=== PATIENT | female | born 1995 | race Caucasian/White ===

== ENCOUNTER → 2018-08-01 09:45 | Observation (INO) ==
[2018-07-31 17:32] LABS: Basophils % 0.4 %; Eosinophils # 0.1 K/mcL (0.0-0.6); Eosinophils % 0.7 %; Hematocrit 35.8 % (35.3-44.9); Immature Granulocytes % 0.4 % (0-4); Lymphocytes # 1.8 K/mcL (0.6-4.6); Lymphocytes % 21.8 %; Mean Corpuscular HGB Conc 33.5 g/dL (31.6-35.5); Mean Corpuscular Hemoglobin 27.8 pg (28.0-33.3); Mean Corpuscular Volume 82.9 fL (83.0-100.0); Mean Platelet Volume 10.4 fL (9.4-12.4); Monocytes # 0.4 K/mcL (0.0-1.3); Monocytes % 5.4 %; Neutrophils # 5.8 K/mcL (1.6-8.9); Platelet Count 327 K/mcL (140-400); Red Blood Count 4.32 M/mcL (3.82-4.97); Red Cell Distribution Width 13.4 % (11.5-14.5); Segmented Neutrophils % 71.3 %
--- NOTE | 2018-07-31 17:44 | OB/GYN History & Physical ---
Date of Encounter: 07/31/18 Time of Encounter: 17:36 Assessment and Plan (1) 38 weeks gestation of Current visit: Yes Status: Acute PIH evaluation; uric acid 6 NST reactive Tylenol for headache Observe overnight for symptom improvement/worsening POC per consult with Dr Wilson (2) GBS (group B Streptococcus carrier), +RV culture, currently Current visit: Yes Status: Acute (3) Headache Current visit: Yes Status: Acute Qualifiers: Headache type: unspecified Headache chronicity pattern: acute headache Intractability: not intractable Qualified Code(s): R51 - Headache History of Present Illness Chief complaint: Severe headache HPI: Ms. Stack is a 22 year old at 38 weeks and 5 days presents to triage today with c/o a severe headache that caused her to be dizzy, have right facial weakness, a heavy tongue, and right neck/arm/hand numbness x 30 minutes. Her states she was speaking backwards at the same time and having difficulty getting what she wanted to say out. She currently c/o a headache and dizziness when not laying still. She has been normotensive for the majority of her with a history of chronic HTN on medication prior to . Her blood pressure in the office on 07/26/18 was 140/90 and she was sent to L&D for a pre-eclampsia evaluation at which time her labs returned normal and her blood pressure stabilized. She was discharged. She is scheduled for an IOL on 08/03/18. Last ultrasound: 07/30/18 Vtx, grade 3 anterior placenta, CLIFTON 7.7 with fluid filled stomach and bladder, EFW 3985g 97% BPP 8/8 Labs: GBS positive HIV NR Hep B NR RPR NR Varicella Immune Rubella Immune Blood type A+ Past Med Surg Social Fam HX - Past Medical History Medical history: no medical history Psychiatric history: anxiety - Past Surgical History Surgical History: other Additional surgical history: T&A at 17 years of age, [place] teeth removal at 16 years of age - Social History Smoking Status: Never smoker Smokeless Tobacco Status: No Alcohol use: none Drug use: none - Family History Mother Adopted: No Family Member Ethnicity: Non- Living Status: Still Living Hx Family Cardiac Disorders: Yes (htn) Hx Family Respiratory Disorders: Yes (copd) Hx Family Cancer: Yes (breast) Hx Family GI Disorders: No Hx Family Endocrine Disorder: No Hx Family Neuromuscular Disorders: No Hx Family Neurologic Disorders: No Hx Family HEENT Disorders: No Hx Family Autoimmune Disorders: No Obstetrical History - Pregnancies : 4 Para: 2 Term: 1 : 1 Ab's: 2 Livin Medications and Allergies Vitamin Tablet 1 tab PO DAILY 06/18/18 [History] Allergy/AdvReac Type Severity Reaction Status Date / Time acetaminophen [From Vicodin] AdvReac Itching Verified 07/31/18 16:54 codeine AdvReac Itching Verified 07/31/18 16:54 hydrocodone [From Vicodin] AdvReac Itching Verified 07/31/18 16:54 ketorolac [From Toradol] AdvReac Itching Verified 07/31/18 16:54 Review of System OB All systems PM: reviewed and no additional remarkable complaints except as stated Exam - Constitutional Constitutional: well developed, well nourished, no acute distress, obese - HEENT HEENT: PERRL, Normocephaly, Mucus Membranes Moist - Neck Neck exam: full ROM - Lungs Respiratory exam: CTAB - Cardiovascular Cardiovascular exam: RRR, +S1, +S2 - Abdomen Abdomen: Present: bowel sounds normal, gravid, non tender - Extremities Extremities exam: normal capillary refill, normal inspection, radial pulses palpable and symmetrical Deep Tendon Reflex Grade: 2+ Normal - Vagina Vagina: Present: normal moisture - Cervix Dilation: 5 Effacement: 70 Station: -1 - Uterus Uterus exam: Present: normal size, normal contour - Anus/Rectum Anus/Rectum: Present: normal perianal skin - Comments Comments: Brisk patellar reflexes (2+) 2 beats clonus Results Result Diagrams: 07/31/18 17:05 07/31/18 17:05 Abnormal lab results MCV 82.9 fL (83.0-100.0) L 07/31/18 17:05 MCH 27.8 pg (28.0-33.3) L 07/31/18 17:05 All other labs normal. - VTE Reasons for not Prescribing Prophylaxis: Treatment not Indicated - Low risk for VTE
[2018-07-31 17:46] LABS: Amphetamine Screen,Urine Negative ng/mL (Cutoff=1000); Barbiturate Screen,Urine Negative ng/mL (Cutoff=200); Benzodiazepines Screen,Urine Negative ng/mL (Cutoff=200); Cannabinoid Screen,Urine Negative ng/mL (Cutoff = 50); Cocaine Screen,Urine Negative ng/mL (Cutoff= 300); Creatinine,Urine 61 mg/dL; Opiate Screen,Urine Negative ng/mL (Cutoff=300); Phencyclidine Screen,Urine Negative ng/mL (Cutoff=25); Protein/Creatinine Ratio,Urine 0.21 mg/mg (0.00-0.20)
[2018-07-31 17:48] LABS: Alanine Aminotransferase 5 Units/L (7-52); Aspartate Amino Transferase 11 Units/L (13-39); BUN/Creatinine Ratio 12 (6-26); Blood Urea Nitrogen 7 mg/dL (6-20); Lactate Dehydrogenase 152 Units/L (140-271); eGFR For Non-African Americans > 60 (> 60)
--- NOTE | 2018-07-31 18:10 | Event Note ---
Date of Encounter: 07/31/18 Time of Encounter: 18:03 Asked by CNM to review case and see pt for MANZANO w/ unilateral neuro symptoms, since resolved but pt still has MANZANO that persists, no medication treatment yet. PIH panel normal, but trending up. BPs normal range. Pt currently [id number]. A+O x3. DTRS 3+, no clonus. 1+ PTE and ankle edema. Pt with cervical change, now 5 cm. CAT1 tracing. Agree with overnight observation and evaluation for active labor and need for intervention secondary to preE
--- NOTE | 2018-08-01 06:53 | OB/GYN Progress Note ---
Date of Encounter: 08/01/18 Time of Encounter: 06:49 - Assessment and Plan (1) 38 weeks gestation of Current Visit: Yes Status: Acute Discharge home with labor and PIH precautions Follow up on 08/03/18 for IOL and PRN PIH evaluation; uric acid 6 NST reactive Tylenol for headache Observe overnight for symptom improvement/worsening POC per consult with Dr Wilson (2) GBS (group B Streptococcus carrier), +RV culture, currently Current Visit: Yes Status: Acute (3) Headache Current Visit: Yes Status: Acute Qualifiers: Headache type: unspecified Headache chronicity pattern: acute headache Intractability: not intractable Qualified Code(s): R51 - Headache Subjective - Subjective Principal diagnosis: Headache and neuro symptoms Interval history: This morning Ms Stack states her headache has resolved along with her other symptoms. She states positive movement. She has had irregular, infrequent contractions overnight. Antepartum ROS: movement normal, no new complaints, no loss of fluid, no vaginal bleeding, no contractions Objective - Vital Signs Vital Signs: Intake and Output 07/31/18 07/31/18 08/01/18 15:59 23:59 07:59 Other: Weight 125.645 kg - Exam FHR: auscultation normal, category 1 FHR comments: [place] - irregular infrequent contractions FHTs baseline 160; Cat 1 tracing Abdomen: Present: normal appearance, soft, gravid. Absent: tenderness Uterus: Present: normal. Absent: firm, bogginess, tenderness - Labs Labs: Abnormal lab results MCV 82.9 fL (83.0-100.0) L 07/31/18 17:05 MCH 27.8 pg (28.0-33.3) L 07/31/18 17:05 Creatinine 0.57 mg/dL (0.60-1.20) L 07/31/18 17:05 AST 11 Units/L (13-39) L 07/31/18 17:05 ALT 5 Units/L (7-52) L 07/31/18 17:05 Protein/Creatinin Ratio 0.21 mg/mg (0.00-0.20) H 07/31/18 17:03
[~2018-08-01 09:45] MED LIST: Acetaminophen 325 MG TABLET PO ONE; Ringers Solution, Lactated 1,000 ML ONE
== END | disposition home or self-care (01) ==
LOC: 1NENULAB
PROVIDERS: ADMIT Advanced Practice Midwife; ATTEND Advanced Practice Midwife

== ENCOUNTER 2018-08-03 10:00 | Inpatient (IN) ==
[2018-08-03] MEDS ORDERED: Metoclopramide 10 MG/2 ML VIAL IVP PRN (10:10)
[2018-08-03] MEDS ORDERED: Famotidine 20 MG/2 ML VIAL IVP PRN (10:10)
[2018-08-03] MEDS ORDERED: *HR* Nalbuphine 10 MG/ML AMPUL IVP PRN (10:10)
[2018-08-03] MEDS ORDERED: miSOPROStol 25 MCG TABLET PO PRN (10:10)
[2018-08-03] MEDS ORDERED: Naloxone 0.4 MG/ML INJ IVP PRN (10:10)
[2018-08-03] MEDS ORDERED: Ondansetron 4 MG/2 ML VIAL IVP PRN (10:10)
[2018-08-03] MEDS ORDERED: Lidocaine 1% 20 ML MDV INFILT PRN (10:10)
[2018-08-03] MEDS ORDERED: Oxytocin 20 units/ LR 1000 mL 20 UNIT/1,000 ML BAG IVC SCH (10:15)
[2018-08-03] MEDS ORDERED: Ringers Solution, Lactated 1,000 ML IVC SCH (10:15)
[2018-08-03] MEDS ORDERED: Epidural Premix (fent/bupiv) 110 ML EP SCH (10:30)
[2018-08-03] MEDS ORDERED: Penicillin G Potassium 5,000,000 UNIT in 0.9 % Sodium Chloride Mini Bag 100 ML IVPB ONE (10:30)
[2018-08-03 11:06] LABS: Basophils % 0.4 %; Eosinophils # 0.1 K/mcL (0.0-0.6); Hematocrit 34.5 % (35.3-44.9); Hemoglobin 11.7 g/dL (11.5-15.4); Immature Granulocytes % 0.6 % (0-4); Lymphocytes # 1.5 K/mcL (0.6-4.6); Lymphocytes % 21.6 %; Mean Corpuscular HGB Conc 33.9 g/dL (31.6-35.5); Mean Corpuscular Hemoglobin 27.8 pg (28.0-33.3); Mean Corpuscular Volume 81.9 fL (83.0-100.0); Mean Platelet Volume 10.1 fL (9.4-12.4); Monocytes # 0.4 K/mcL (0.0-1.3); Monocytes % 5.1 %; Neutrophils # 4.9 K/mcL (1.6-8.9); Platelet Count 285 K/mcL (140-400); Red Blood Count 4.21 M/mcL (3.82-4.97); Red Cell Distribution Width 13.2 % (11.5-14.5); Segmented Neutrophils % 71.3 %
[2018-08-03 11:13] LABS: Bilirubin,Urine Negative (Negative); Blood,Urine Negative (Negative); Clarity,Urine Clear (Clear); Color,Urine Yellow (Yellow); Glucose,Urine (UA) Normal (Normal); Ketones,Urine Negative (Negative); Leukocyte Esterase,Urine Negative (Negative); Nitrite,Urine Negative (Negative); PH,Urine 6.5 pH Units (5.0-8.0); Protein,Urine Negative (Neg-Trace); Specific Gravity,Urine 1.013 (1.010-1.025); Urobilinogen,Urine Normal (Normal)
[2018-08-03 11:15] LABS: Amphetamine Screen,Urine Negative ng/mL (Cutoff=1000); Barbiturate Screen,Urine Negative ng/mL (Cutoff=200); Benzodiazepines Screen,Urine Negative ng/mL (Cutoff=200); Cannabinoid Screen,Urine Negative ng/mL (Cutoff = 50); Cocaine Screen,Urine Negative ng/mL (Cutoff= 300); Opiate Screen,Urine Negative ng/mL (Cutoff=300); Phencyclidine Screen,Urine Negative ng/mL (Cutoff=25)
[2018-08-03 11:27] LABS: Alanine Aminotransferase 5 Units/L (7-52); Aspartate Amino Transferase 9 Units/L (13-39); BUN/Creatinine Ratio 15 (6-26); Blood Urea Nitrogen 9 mg/dL (6-20); Lactate Dehydrogenase 123 Units/L (140-271); Uric Acid 6.6 mg/dL (2.3-7.6); eGFR For Non-African Americans > 60 (> 60)
[2018-08-03 11:28] LABS: Protein/Creatinine Ratio,Urine 0.13 mg/mg (0.00-0.20)
[2018-08-03] MEDS ORDERED: Lidocaine -MPF 1% 5 ML AMPUL ONE (13:45)
[2018-08-03] MEDS ORDERED: Penicillin G Potassium 2,500,000 UNIT in 0.9 % Sodium Chloride 100 ML IVPB SCH (14:30)
--- NOTE | 2018-08-03 14:51 | Anesthesia Evaluation PreOp ---
Date of Encounter: 08/03/18 Time of Encounter: 14:49 - Past History Planned Operation: EMMA Cardiac History: Arrhythmia (Went to ER for palpitations early in . No f/u. No workup. No symptoms since. No other hx.) Pulmonary History: Denies Any Significant HX CREATIVE WRITING TEACHER History: Denies Any Significant HX Other Medical History: Other (One sided epidural with first delivery.) Anesthesia History: No Prior Anesthetic Complications, Past Anesthesia Alcohol Use: none Drug use: none Medications and Allergies Vitamin Tablet 1 tab PO DAILY 06/18/18 [History] Allergy/AdvReac Type Severity Reaction Status Date / Time acetaminophen [From Vicodin] AdvReac Itching Verified 07/31/18 16:54 codeine AdvReac Itching Verified 07/31/18 16:54 hydrocodone [From Vicodin] AdvReac Itching Verified 07/31/18 16:54 ketorolac [From Toradol] AdvReac Itching Verified 07/31/18 16:54 - Meds/Allergy Pre-op Review Medications Reviewed: Yes Allergies Reviewed: Yes Beta Blockers on Current Med List: No Anesthesia Results - Labs 08/03/18 10:32 08/03/18 10:32 Anesthesia Exam O2 Sat Height 1.68 m Weight 124.9 kg O2 Sat by Pulse Oximetry 99 Vital Signs Temp Pulse Resp BP Pulse Ox 98.9 F 65 14 141/85 99 08/03/18 10:53 08/03/18 10:53 08/03/18 10:53 08/03/18 10:53 08/03/18 10:53 NPO (# of Hours): 3 Pain Scale: 5 Pain Scale Used: Numeric (1 - 10) - HEENT Pupil (Motor): Pupils equal Mallampati: II Teeth: Normal Oral Opening: Greater than 3 - CREATIVE WRITING TEACHER LOC: Oriented CREATIVE WRITING TEACHER Motor: Normal RUE, Normal LUE, Normal RLE, Normal LLE, Normal Face CREATIVE WRITING TEACHER Sensory: Normal: RUE, LUE, RLE, LLE, Face - Cardiac Rhythm: Regular Murmur: None JVD: No Carotid Bruit: No - Pulmonary Breath Sounds: bilateral Clear Respiratory Effort: Symmetrical Anesthesia Assess/Plan ASA Score: 3 (BMI 44) Level of consciousness: Cooperative, Oriented Anesthetic Plan: General, Epidural Autologous Blood: Yes Monitoring Plan: Standard Monitors
--- NOTE | 2018-08-03 14:54 | Anesthesia Procedures ---
Addendum entered and electronically signed by Joe Angeles CRNA 08/04/18 06:35: Delivery Date: 08/03/18 Infant Delivery Time: 19:20 Original Note: Date of Encounter: 08/03/18 Time of Encounter: 14:51 Procedures: Anesthesia - Epidural/Spinal Patient ID/Chart reviewed: Yes Patient examined: Yes OB Eval: Gestational age: 39.1 OB Eval: : 4 OB Eval: Hx Para: 2 OB Eval: Dilated at (cm): 5 OB Eval: Contractions: Non-stressed pattern Consent Obtained: Yes Supplemental Oxygen: None/Room Air Site Prep: Aseptic Technique, Sterile prep and drape, Povidone-Iodine 1% Patient position: upright Local Anesthetic: Lidocaine 1% Amount of Local Anesthetic used: 3 Touhy Needle Gauge: 18 Touhy Needle Depth (cm): 9 Catheter Depth at Skin (cm): 20 Test Dose (1.5% Lido + Epi): Volume given (mls): 5 Test Dose Result: Negative Loading Dose: Other: 10mls of epidural pharm bag premix solution Loading Dose Administered: Thru Catheter Infusion Med: 0.125% Bupivacaine w/ 2 mcg/ml Fentanyl Infusion Rate (mls/hr): 18 ([id number]) Catheter Secured in Place: Tegaderm, Tape Interspace Used: L4-L5 Loss of Resistance (RYAN): Yes Blood: No CSF: No Paresthesia: No Procedure: pt tolerated procedure well. no complications. vss. fhr stable.
--- NOTE | 2018-08-03 20:36 | OB/GYN History & Physical ---
Date of Encounter: 08/03/18 Time of Encounter: 20:34 Assessment and Plan (1) 39 weeks gestation of Current visit: Yes Status: Acute Will admit for induction of labor. She is +GBBS, will tx with pcn. Expect . History of Present Illness Chief complaint: Here for induction of labor HPI: Ms. Stack is a 22 year old female female at 39 weeks EGA presents for induction of labor. Pt has h/o prior 33 week delivery and has been on progesterone with term deliveries the last two pregnancies. Past Med Surg Social Fam HX - Past Medical History Source: patient, old records reviewed Medical history: no medical history Psychiatric history: anxiety - Past Surgical History Surgical History: other Additional surgical history: T&A at 17 years of age, [place] teeth removal at 16 years of age - Social History Smoking Status: Never smoker Smokeless Tobacco Status: No Alcohol use: none Drug use: none - Family History Mother Adopted: No Family Member Ethnicity: Non- Living Status: Still Living Hx Family Cardiac Disorders: Yes (hypertension) Hx Family Respiratory Disorders: Yes (COPD) Hx Family Cancer: Yes (breast) Hx Family GI Disorders: No Hx Family Genitourinary Disorders: No Hx Family Endocrine Disorder: No Hx Family Neuromuscular Disorders: No Hx Family Neurologic Disorders: No Hx Family HEENT Disorders: No Hx Family Autoimmune Disorders: No Obstetrical History - Pregnancies : 4 Medications and Allergies Vitamin Tablet 1 tab PO DAILY 06/18/18 [History] Allergy/AdvReac Type Severity Reaction Status Date / Time acetaminophen [From Vicodin] AdvReac Itching Verified 07/31/18 16:54 codeine AdvReac Itching Verified 07/31/18 16:54 hydrocodone [From Vicodin] AdvReac Itching Verified 07/31/18 16:54 ketorolac [From Toradol] AdvReac Itching Verified 07/31/18 16:54 Exam - Vital Signs Vital signs: Initial Vital Signs Temp Pulse Resp BP Pulse Ox 98.9 F 65 14 141/85 99 08/03/18 10:53 08/03/18 10:53 08/03/18 10:53 08/03/18 10:53 08/03/18 10:53 - Constitutional Constitutional: well developed - HEENT HEENT: EOMI, PERRL - Neck Neck exam: full ROM - Lungs Respiratory exam: CTAB - Cardiovascular Cardiovascular exam: RRR - Abdomen Abdomen: Present: gravid - Extremities Deep Tendon Reflex Grade: 2+ Normal - Cervix Dilation: 5 Effacement: 90 Station: -2 Results Result Diagrams: 08/03/18 10:32 08/03/18 10:32 Abnormal lab results Hct 34.5 % (35.3-44.9) L 08/03/18 10:32 MCV 81.9 fL (83.0-100.0) L 08/03/18 10:32 MCH 27.8 pg (28.0-33.3) L 08/03/18 10:32 Creatinine 0.59 mg/dL (0.60-1.20) L 08/03/18 10:32 AST 9 Units/L (13-39) L 08/03/18 10:32 ALT 5 Units/L (7-52) L 08/03/18 10:32 Lactate Dehydrogenase 123 Units/L (140-271) L 08/03/18 10:32 Urine Total Protein 17 mg/dL (1-14) H 08/03/18 10:32 All other labs normal. - VTE Reasons for not Prescribing Prophylaxis: Treatment not Indicated - Low risk for VTE
--- NOTE | 2018-08-03 20:41 | OB/GYN Procedure Note ---
Delivery - Delivery Date: 08/03/18 Provider: Jaun Haas Intrapartum events: none Delivery induction: oxytocin Delivery monitor: external FHT, external uterine Anesthesia: epidural Quantitated Blood Loss: 100 - (s) Infant A Delivery Date: 08/03/18 Delivery Time: 19:20 Presentation: vertex Position: ARY Gender: Female Viability: Viable Weight Gram: 3.755 kg at 1 minute: 8 at 5 mins: 9 Shoulder Dystocia: not encountered Specimens collected: cord blood Placenta: spontaneous Cord: 3 umbilical vessels - Repair Laceration Description: None - Disposition Mom disposition: stable in LDR disposition: stable in LDR - Comments Comments: Pt s/p of liveborn female over intact perineum without difficulty. Spont delivery of normal placenta with 3 vc. EBL 100 cc . Mother and infant recovered in LDR.
[2018-08-03] MEDS ORDERED: Ibuprofen 600 MG TABLET PO PRN (22:13)
--- NOTE | 2018-08-04 09:37 | Discharge Summary ---
Date of Encounter: 08/04/18 Time of Encounter: 09:33 - Discharge Diagnosis (1) Vaginal delivery Priority: Primary Status: Acute Comments: Feeling well Tolerating regular diet Pain well-controlled with by mouth pain meds Ambulating independently Voiding independently Lochia light Passing flatus, no BM yet Vital signs stable Discharge home today - Discharge Medications Prescriptions: Ibuprofen [Motrin] 600 mg PO Q6HR PRN #30 tablet PRN Reason: Pain Docusate [Colace] 100 mg PO BID #30 capsule Home Medications: Vitamin Tablet 1 tab PO DAILY 06/18/18 [History] Docusate [Colace] 100 mg PO BID #30 capsule 08/04/18 [Rx] Ibuprofen [Motrin] 600 mg PO Q6HR PRN #30 tablet 08/04/18 [Rx] Allergies/Adverse Reactions: Allergy/AdvReac Type Severity Reaction Status Date / Time acetaminophen [From Vicodin] AdvReac Itching Verified 07/31/18 16:54 codeine AdvReac Itching Verified 07/31/18 16:54 hydrocodone [From Vicodin] AdvReac Itching Verified 07/31/18 16:54 ketorolac [From Toradol] AdvReac Itching Verified 07/31/18 16:54 Data Procedures and tests throughout hospitalization: Laboratory Tests 08/03/18 08/03/18 08/03/18 10:32 10:32 10:32 WBC 6.8 RBC 4.21 Hgb 11.7 Hct 34.5 L MCV 81.9 L MCH 27.8 L MCHC 33.9 RDW 13.2 Plt Count 285 MPV 10.1 Immature Gran % 0.6 Seg Neutrophils % 71.3 Lymphocytes % 21.6 Monocytes % 5.1 Eosinophils % 1.0 Basophils % 0.4 Neutrophils # 4.9 Lymphocytes # 1.5 Monocytes # 0.4 Eosinophils # 0.1 Basophils # 0.0 BUN Creatinine Est GFR ( Amer) Est GFR (Non-Af Amer) BUN/Creatinine Ratio Uric Acid AST ALT Lactate Dehydrogenase Urine Color Urine Clarity Urine pH Ur Specific [place] Urine Protein Urine Glucose (UA) Urine Ketones Urine Blood Urine Nitrite Urine Bilirubin Urine Urobilinogen Ur Leukocyte Esterase Urine Creatinine 128 Protein/Creatinin Ratio 0.13 Urine Total Protein 17 H Urine Opiates Screen Negative Ur Barbiturates Screen Negative Ur Phencyclidine Scrn Negative Ur Amphetamines Screen Negative U Benzodiazepines Scrn Negative Urine Cocaine Screen Negative U Marijuana (THC) Screen Negative Ur Drug Screen Interp See Below 08/03/18 08/03/18 10:32 10:32 WBC RBC Hgb Hct MCV MCH MCHC RDW Plt Count MPV Immature Gran % Seg Neutrophils % Lymphocytes % Monocytes % Eosinophils % Basophils % Neutrophils # Lymphocytes # Monocytes # Eosinophils # Basophils # BUN 9 Creatinine 0.59 L Est GFR ( Amer) > 60 Est GFR (Non-Af Amer) > 60 BUN/Creatinine Ratio 15 Uric Acid 6.6 AST 9 L ALT 5 L Lactate Dehydrogenase 123 L Urine Color Yellow Urine Clarity Clear Urine pH 6.5 Ur Specific [place] 1.013 Urine Protein Negative Urine Glucose (UA) Normal Urine Ketones Negative Urine Blood Negative Urine Nitrite Negative Urine Bilirubin Negative Urine Urobilinogen Normal Ur Leukocyte Esterase Negative Urine Creatinine Protein/Creatinin Ratio Urine Total Protein Urine Opiates Screen Ur Barbiturates Screen Ur Phencyclidine Scrn Ur Amphetamines Screen U Benzodiazepines Scrn Urine Cocaine Screen U Marijuana (THC) Screen Ur Drug Screen Interp Labs on day of discharge: Labs from last 24 hours 08/03/18 08/03/18 08/03/18 10:32 10:32 10:32 WBC RBC Hgb Hct MCV MCH MCHC RDW Plt Count MPV Immature Gran % Seg Neutrophils % Lymphocytes % Monocytes % Eosinophils % Basophils % Neutrophils # Lymphocytes # Monocytes # Eosinophils # Basophils # BUN 9 Creatinine 0.59 L Est GFR ( Amer) > 60 Est GFR (Non-Af Amer) > 60 BUN/Creatinine Ratio 15 Uric Acid 6.6 AST 9 L ALT 5 L Lactate Dehydrogenase 123 L Urine Color Yellow Urine Clarity Clear Urine pH 6.5 Ur Specific [place] 1.013 Urine Protein Negative Urine Glucose (UA) Normal Urine Ketones Negative Urine Blood Negative Urine Nitrite Negative Urine Bilirubin Negative Urine Urobilinogen Normal Ur Leukocyte Esterase Negative Urine Creatinine 128 Protein/Creatinin Ratio 0.13 Urine Total Protein 17 H Urine Opiates Screen Ur Barbiturates Screen Ur Phencyclidine Scrn Ur Amphetamines Screen U Benzodiazepines Scrn Urine Cocaine Screen U Marijuana (THC) Screen Ur Drug Screen Interp 08/03/18 08/03/18 10:32 10:32 WBC 6.8 RBC 4.21 Hgb 11.7 Hct 34.5 L MCV 81.9 L MCH 27.8 L MCHC 33.9 RDW 13.2 Plt Count 285 MPV 10.1 Immature Gran % 0.6 Seg Neutrophils % 71.3 Lymphocytes % 21.6 Monocytes % 5.1 Eosinophils % 1.0 Basophils % 0.4 Neutrophils # 4.9 Lymphocytes # 1.5 Monocytes # 0.4 Eosinophils # 0.1 Basophils # 0.0 BUN Creatinine Est GFR ( Amer) Est GFR (Non-Af Amer) BUN/Creatinine Ratio Uric Acid AST ALT Lactate Dehydrogenase Urine Color Urine Clarity Urine pH Ur Specific [place] Urine Protein Urine Glucose (UA) Urine Ketones Urine Blood Urine Nitrite Urine Bilirubin Urine Urobilinogen Ur Leukocyte Esterase Urine Creatinine Protein/Creatinin Ratio Urine Total Protein Urine Opiates Screen Negative Ur Barbiturates Screen Negative Ur Phencyclidine Scrn Negative Ur Amphetamines Screen Negative U Benzodiazepines Scrn Negative Urine Cocaine Screen Negative U Marijuana (THC) Screen Negative Ur Drug Screen Interp See Below Date of admission: 08/03/18 10:01 Primary care physician: PCP NONE Discharging clinician: Dasha Michel Anticipated date of discharge: 08/04/18 - Patient Status Disposition: Home, Self-Care Condition: Good Functional capacity at discharge: independent ambulation Overall status at discharge: patient is progressing back to baseline - Discharge Instructions Follow Up With: NONE,PCP [Primary Care Provider] - Kodak Quezada MD [Partnered Physician] - - Diet and Activity Activity: increase activity as tolerated Diet: regular diet Hospital Course Procedures: Reason for admission: induction of labor, IUP at term Delivery: Episiotomy: none Laceration: none Other procedures: none complications: none Discharge diagnosis: IUP at term delivered baby: female Hospital course: Patient presented to labor and delivery for induction of labor at 39 weeks. She progressed with an uncomplicated labor course to complete and delivered a viable female . Her course has been uncomplicated as well. She was initially wanting a tubal ligation however she is unable to have this in the hospital at this time. She is amenable to scheduling at her visit. She was discharged home today with appropriate medications and in stable condition. Time Attestation: Total time spent providing and/or coordinating discharge services: Time Spent: Less than 30 minutes Exam - Constitutional Vitals: Temp Pulse Resp BP Pulse Ox 97.8 F 76 16 115/76 97 08/04/18 04:05 08/04/18 04:05 08/04/18 04:05 08/04/18 04:05 08/04/18 04:05 General appearance IM: A&O X 3 - Respiratory Respiratory exam: Present: CTAB - Cardiovascular Cardiovascular exam IM: Present: RRR, +S1, +S2 - GI/Abdominal GI/Abdominal exam IM: normal bowel sounds, no peritoneal signs - Rectal Rectal exam: deferred - Uterine Tone: Firm Uterus Position: 2 Fingers Below Umbilicus, Midline - Extremities Exam Extremities exam IM: Present: normal capillary refill, normal inspection, radial pulses palpable and symmetrical - Neurological Exam Neurological exam: alert, CN II-XII intact, normal gait, oriented X3, reflexes normal, no focal deficits, strengths equal and symetr throughout - Psychiatric Additional comments: Patient denies history of anxiety and depression. Signs and symptoms of depression discussed with patient and partner and both verbalized understanding of when to seek help.
[2018-08-04] MEDS ORDERED: Prenatal Vit/FA 1 EACH TABLET PO SCH (09:45)
[2018-08-04 10:11] VITALS: BP 114/74
== END 2018-08-04 16:46 | disposition home or self-care (01) | DRG 560 ==
LOC: 1NENULAB 10:01 → 1NENUOBS 22:02
PROVIDERS: ADMIT Obstetrics & Gynecology; ATTEND Obstetrics & Gynecology